=== PATIENT | female | born 1965 | race Caucasian/White ===

== ENCOUNTER → 2020-12-16 | Outpatient (CLI) | payer OTHER ==
[~2020-12-16] MED LIST: ABILIFY10 MG PO; ANORO ELLIPTA1 EACH INH; CALCIUM 600 +1 EAC3 PO; CITALOPRAM HBR20 MG PO; CLARITIN10 MG PO; CRESTOR20 MG PO; DEPAKOTE ER500 MG PO; FERROUS SULFAT325 M2 PO; FISH OIL 1,0001 EACH PO; HYDROXYZINE HCL10 MG PO; KEPPRA1000 MG PO; KEPPRA750 MG PO; LACTULOSE20 GM/30 M PO; LINZESS290 MCG PO; LISINOPRIL40 MG PO; LOW DOSE ASPIRI81 MG PO; NORVASC10 MG PO; PLAVIX 75 MG TA75 MG PO; PROVENTIL HFA6.7 GM INH; SEROQUEL50 MG PO; SPIRIVA HANDIH18 MCG INH; TRAZODONE HCL150 MG PO; VIMPAT100 MG PO; ZESTRIL40 MG PO
== END ==
LOC: CT 12-12 09:00
DX: R91.8 Other nonspecific abnormal finding of lung field (principal)
CPT/HCPCS: 71260; Q9967

== ENCOUNTER → 2021-02-06 | Outpatient (CLI) | payer OTHER | LOC: HEART 5 11:36 | DX: Z09 Encounter for follow-up examination after completed treatment for conditions other than malignant neoplasm (principal); Z87.09 Personal history of other diseases of the respiratory system; F17.210 Nicotine dependence, cigarettes, uncomplicated; R94.2 Abnormal results of pulmonary function studies | CPT/HCPCS: 94060; 94729 ==

== ENCOUNTER → 2021-05-14 | Outpatient (CLI) | payer OTHER | LOC: EXRD 12:57 | DX: I73.9 Peripheral vascular disease, unspecified (principal) | CPT/HCPCS: 93925 ==

== ENCOUNTER 2021-06-19 18:29 | Emergency (ER) | payer OTHER ==
[~2021-06-19 18:29] MED LIST changes: -LACTULOSE20 GM/30 M PO
[2021-06-19 19:50] LABS: HEMOGLOBIN 9.2 gm/dl (12.3-15.3); RED BLOOD COUNT 2.98 M/UL (4.00-5.10); WHITE BLOOD COUNT 5.9 K/UL (4.5-11.0)
[2021-06-19 20:13] LABS: BUN/CREATININE RATIO 17 (0-10)
[2021-06-19] MEDS ORDERED: LACTULOSE20 GM/30 M PO (21:09)
== END 2021-06-19 21:20 | disposition home or self-care (01) ==
LOC: ER1 18:29
PROVIDERS: Family Medicine
DX: K59.00 Constipation, unspecified (principal); R10.84 Generalized abdominal pain; J44.9 Chronic obstructive pulmonary disease, unspecified; I10 Essential (primary) hypertension; F17.200 Nicotine dependence, unspecified, uncomplicated; D64.9 Anemia, unspecified
CPT/HCPCS: 71045; 80053; 82550; 82553; 83605; 83690; 83874; 84484; 85025; 93005; 99285

== ENCOUNTER → 2022-02-26 | Outpatient (CLI) | payer OTHER ==
[~2022-02-26] MED LIST changes: +LACTULOSE20 GM/30 M PO
== END ==
LOC: EXRD 13:05
DX: M79.662 Pain in left lower leg (principal)
CPT/HCPCS: 93971

== ENCOUNTER → 2022-05-20 | Day surgery (SDC) | payer OTHER ==
[~2022-05-20] MED LIST changes: +ADVAIR 250-501 EACH INH; +ALBUTEROL1.25 MG/3 INH; +CYCLOBENZAPRINE5 MG PO; +MELOXICAM15 MG PO
== END | disposition home or self-care (01) ==
LOC: OR 07:33
DX: K31.9 Disease of stomach and duodenum, unspecified (principal); K29.50 Unspecified chronic gastritis without bleeding; K44.9 Diaphragmatic hernia without obstruction or gangrene; I10 Essential (primary) hypertension; E78.5 Hyperlipidemia, unspecified; G40.909 Epilepsy, unspecified, not intractable, without status epilepticus; J44.9 Chronic obstructive pulmonary disease, unspecified; F17.200 Nicotine dependence, unspecified, uncomplicated; Z90.49 Acquired absence of other specified parts of digestive tract; Z79.02 Long term (current) use of antithrombotics/antiplatelets; Z79.82 Long term (current) use of aspirin
CPT/HCPCS: J2704; J7040